=== PATIENT | female | born 1960 | race Caucasian/White ===

== ENCOUNTER 2022-02-12 06:52 | Emergency (ER) | payer OTHER, BC ==
[~2022-02-12] VITALS: Ht 154.9 cm; Wt 59.1 kg
[2022-02-12] MEDS ORDERED: CEPHALEXIN500 M1 PO (08:42)
[2022-02-12 09:25] VITALS: BP 154/77
== END 2022-02-12 10:01 | disposition home or self-care (01) | DRG 605 ==
LOC: ED 06:52
PROC: 0HQEXZZ Repair Left Lower Arm Skin, External Approach (ICD-10-PCS; principal; 2022-02-12)
DX: S61.512A Laceration without foreign body of left wrist, initial encounter (principal); W45.8XXA Other foreign body or object entering through skin, initial encounter; I10 Essential (primary) hypertension; G40.909 Epilepsy, unspecified, not intractable, without status epilepticus; F17.210 Nicotine dependence, cigarettes, uncomplicated

== ENCOUNTER 2022-02-20 13:06 | Emergency (ER) | payer OTHER ==
[~2022-02-20] VITALS: Ht 154.9 cm; Wt 60.0 kg
[~2022-02-20 13:06] MED LIST: CEPHALEXIN500 M1 PO
[2022-02-20 13:52] VITALS: BP 118/72
== END 2022-02-20 14:19 | disposition home or self-care (01) | DRG 951 ==
LOC: ED 13:06
DX: Z48.02 Encounter for removal of sutures (principal); I10 Essential (primary) hypertension; G40.909 Epilepsy, unspecified, not intractable, without status epilepticus